=== PATIENT | female | born 1985 | race Two or more races ===

== ENCOUNTER 2020-02-12 08:15 | Inpatient (IN) | payer OTHER ==
[~2020-02-12] VITALS: Ht 154.9 cm; Wt 3.6 kg
[2020-02-12] MEDS ORDERED: SYNTHROID50 MCG PO (09:23)
[2020-02-17] MEDS ORDERED: PRENATAL TABLE1 EACH PO (06:25)
== END 2020-02-20 11:32 | disposition home or self-care (01) | DRG 788 ==
LOC: O/R 02-17 06:00 → OB/GYN 02-17 08:15
PROVIDERS: ADMIT Obstetrics & Gynecology
PROC: 4A1HXFZ Monitoring of Products of Conception, Cardiac Rhythm, External Approach (ICD-10-PCS; 2020-02-17)
PROC: 3E033VJ Introduction of Other Hormone into Peripheral Vein, Percutaneous Approach (ICD-10-PCS; 2020-02-17)
PROC: 10D00Z1 Extraction of Products of Conception, Low, Open Approach (ICD-10-PCS; principal; 2020-02-17 07:00)
DX: O64.1XX0 Obstructed labor due to breech presentation, not applicable or unspecified (principal); O34.29 Maternal care due to uterine scar from other previous surgery; Z3A.39 39 weeks gestation of pregnancy; Z37.0 Single live birth

== ENCOUNTER 2022-04-04 06:14 | Inpatient (IN) | payer OTHER ==
[~2022-04-04] VITALS: Ht 154.9 cm; Wt 3.2 kg
[~2022-04-04 06:14] MED LIST: PRENATAL TABLE1 EACH PO; SYNTHROID50 MCG PO
[2022-04-04] MEDS ORDERED: PRENATAL CAPLE1 EAC1 PO (08:29)
[2022-04-04] MEDS ORDERED: LEVOTHYROXINE25 MCG PO (08:29)
== END 2022-04-07 12:10 | disposition home or self-care (01) | DRG 788 ==
LOC: O/R 06:14 → SURG-SUITE 06:14 → LDR 06:14 → O/R 11:16 → SURG-SUITE 13:36
PROVIDERS: ADMIT Obstetrics & Gynecology; ATTEND Obstetrics & Gynecology
PROC: 4A1HXCZ Monitoring of Products of Conception, Cardiac Rate, External Approach (ICD-10-PCS; 2022-04-04)
PROC: 10D00Z1 Extraction of Products of Conception, Low, Open Approach (ICD-10-PCS; principal; 2022-04-04 13:15)
DX: O32.1XX0 Maternal care for breech presentation, not applicable or unspecified (principal); O34.211 Maternal care for low transverse scar from previous cesarean delivery; Z20.822 Contact with and (suspected) exposure to COVID-19; Z3A.39 39 weeks gestation of pregnancy; Z37.0 Single live birth